=== PATIENT | female | born 1935 | race Caucasian/White ===

== ENCOUNTER 2016-06-08 21:44 | Emergency (ER) | payer MEDICARE, OTHER ==
[2016-06-08 22:09] LABS: ABSOLUTE EOSINOPHILS # (AUTO) 0.5 10^3/uL (0.0-0.6); ABSOLUTE MONOCYTES (AUTO) 0.5 10^3/uL (0.1-1.4); BASOPHILS % (AUTO) 0.6 % (0-2); EOSINOPHILS % (AUTO) 10.7 % (0-6); HEMATOCRIT 33.7 % (36.0-47.0); HGB HCT DIFFERENCE -0.7; LYMPHOCYTES % (AUTO) 19.4 % (13-45); MEAN CORPUSCULAR HEMOGLOBIN 26.3 pg (27.0-33.4); MEAN CORPUSCULAR HGB CONC 32.7 g/dL (32.0-36.0); MEAN CORPUSCULAR VOLUME 80 fl (80-97); RED BLOOD COUNT 4.19 10^6/uL (3.72-5.28); RED CELL DISTRIBUTION WIDTH 17.4 % (11.5-14.0); SEGMENTED NEUTROPHILS % (AUTO) 59.3 % (42-78); WHITE BLOOD COUNT 5.1 10^3/uL (4.0-10.5)
[2016-06-08 22:27] LABS: ALANINE AMINOTRANSFERASE 27 U/L (9-52); ALBUMIN 4.2 g/dL (3.5-5.0); ALKALINE PHOSPHATASE 63 U/L (38-126); ANION GAP 11 (5-19); ASPARTATE AMINO TRANSFERASE 33 U/L (14-36); BILIRUBIN,TOTAL 0.7 mg/dL (0.2-1.3); BLOOD UREA NITROGEN 17 mg/dL (7-20); CARBON DIOXIDE 31 mmol/L (22-30); CHLORIDE 102 mmol/L (98-107); CREATINE KINASE 39 U/L (30-135); CREATININE RESULT 0.62 mg/dL (0.52-1.25); GLUCOSE 139 mg/dL (75-110); POTASSIUM 3.2 mmol/L (3.6-5.0); TOTAL PROTEIN 6.6 g/dL (6.3-8.2)
[2016-06-08 22:39] LABS: CREATINE KINASE MB 0.77 ng/mL (<4.55)
[2016-06-08 22:43] LABS: TROPONIN I < 0.012 ng/mL
[2016-06-08] MEDS ORDERED: IPRATROPIUM/ALBUTEROL 0.5-2.5 MG/3 ML AMPUL NEB ONE (23:48)
--- NOTE | 2016-06-08 23:50 | ER Document Report ---
ED General - General Chief Complaint: Breathing Difficulty Stated Complaint: DIFFICULITY BREATHING Notes: Patient is an 81-year-old female past medical history of COPD without oxygen dependence who presents with 2 days of progressively worsening shortness of breath. States that this worsened by exertion and that that is typical for her at all times it is worse than normal in the last 2 days. Describes her symptoms as constant. Nothing improves her symptoms and she has been trying her albuterol inhalers at home. She has not been seeing a primary care physician regarding today's concerns. She denies any fever, nausea, vomiting, chest pain, or syncope. States she's had similar symptoms in the past prior COPD exacerbations all of this episode "doesn't feel as bad as last time I think I caught it early this time". TRAVEL OUTSIDE OF THE [place] IN LAST 30 DAYS: No - HPI Onset: Other - 2 days Onset/Duration: Gradual Quality of pain: No pain Severity: None Pain Level: Denies Associated symptoms: None Exacerbated by: Walking Relieved by: Denies Similar symptoms previously: Yes Recently seen / treated by doctor: No - Related Data Allergies/Adverse Reactions: No Known Allergies Allergy (Verified 04/05/16 03:32) Past Medical History - General Information source: Patient - Social History Smoking Status: Former Smoker Chew tobacco use (# tins/day): No Frequency of alcohol use: None Drug Abuse: None Lives with: Spouse/Significant other Family History: CAD Patient has suicidal ideation: No Patient has homicidal ideation: No - Past Medical History Cardiac Medical History: Reports: Hx Atrial Fibrillation, Hx Congestive Heart Failure, Hx DVT - history, Hx Heart Attack, Hx Hypercholesterolemia, Hx Hypertension Denies: Hx Pulmonary Embolism Pulmonary Medical History: Reports: Hx COPD Neurological Medical History: Denies: Hx Seizures Endocrine Medical History: Reports: Hx Hypothyroidism. Denies: Hx Diabetes Mellitus Type 1, Hx Diabetes Mellitus Type 2, Hx Hyperthyroidism Renal/ Medical History: Denies: Hx Peritoneal Dialysis GI Medical History: Reports: Hx Gastroesophageal Reflux Disease. Denies: Hx Cirrhosis, Hx Hepatitis Musculoskeltal Medical History: Reports Hx Arthritis Skin Medical History: Reports Hx Eczema - Questionable Psychiatric Medical History: Reports: Hx Depression Infectious Medical History: Denies: Hx Hepatitis Past Surgical History: Reports: Hx Cardiac Catheterization, Hx Cardiac Surgery - pacemaker placement, bypass, Hx Coronary Artery Bypass Graft, Hx Pacemaker, Other - Right lower lobectomy for lung cancer 2013. - Immunizations Hx Diphtheria, Pertussis, Tetanus Vaccination: Yes Hx Pneumococcal Vaccination: 04/20/14 Review of Systems - Review of Systems Notes: Constitutional: Negative for fever. HENT: Negative for sore throat. Eyes: Negative for visual changes. Cardiovascular: Negative for chest pain. Respiratory: Positive for shortness of breath. Gastrointestinal: Negative for abdominal pain, vomiting or diarrhea. Genitourinary: Negative for dysuria. Musculoskeletal: Negative for back pain. Skin: Negative for rash. Neurological: Negative for headaches, weakness or numbness. 10 point ROS negative except as marked above and in HPI. Physical Exam - Vital signs Vitals: Resp 16 06/08/16 21:45 Notes: PHYSICAL EXAMINATION: GENERAL: Elderly women, Well-appearing, well-nourished and in no acute distress. HEAD: Atraumatic, normocephalic. EYES: Pupils equal round and reactive to light, extraocular movements intact, sclera anicteric, conjunctiva are normal. ENT: nares patent, oropharynx clear without exudates. Moist mucous membranes. NECK: Normal range of motion, supple without lymphadenopathy LUNGS: Expiratory wheezing in all lung gay. Probably diminished air movement bilaterally. HEART: Regular rate and rhythm without murmurs ABDOMEN: Soft, nontender, normoactive bowel sounds. No guarding, no rebound. No masses appreciated. EXTREMITIES: Normal range of motion, no pitting or edema. No cyanosis. NEUROLOGICAL: No focal neurological deficits. Moves all extremities spontaneously and on command. PSYCH: Normal mood, normal affect. SKIN: Warm, Dry, normal turgor, no rashes or lesions noted. Course - Re-evaluation Re-evalutation: 06/08/16 23:50 Patient presents with a mild exacerbation of their baseline COPD. Mild wheezing at time of presentation but vitals do not show significant hypoxemia or tachypnea. No retractions. Patient did clinically improve after receiving nebulizers here in the emergency department. Chest x-ray without evidence of an acute pneumonia. Laboratories do not show acute kidney injury or significant leukocytosis. Patient able to ambulate without any respiratory distress. Based on patient's overall reassuring assessment, I believe they are stable for outpatient management with steroids and oral antibiotics. Patient has nebulizers at home. I do not suspect an acute alternative pathology at this time based on history and exam including acute pulmonary embolus, ACS, pneumothorax, or aortic dissection. At this time will discharge with return precautions and follow-up recommendations. Verbal discharge instructions given a the bedside and opportunity for questions given. Medication warnings reviewed. Patient is in agreement with this plan and has verbalized understanding of return precautions and the need for primary care follow-up in the next 24-72 hours. - Vital Signs Vital signs: Temp Pulse Resp BP Pulse Ox 18 173/85 H 93 06/09/16 02:01 06/09/16 02:01 06/09/16 01:31 - Laboratory Result Diagrams: 06/08/16 21:55 06/08/16 21:55 Laboratory results interpreted by me: 06/08/16 06/08/16 06/08/16 21:55 21:55 21:55 Hgb 11.0 L Hct 33.7 L MCH 26.3 L RDW 17.4 H Eosinophils % 10.7 H Potassium 3.2 L Carbon Dioxide 31 H Glucose 139 H NT-Pro-B Natriuret Pep 2470 H - Diagnostic Test Radiology reviewed: Image reviewed, Reports reviewed Radiology results interpreted by me: 06/09/16 02:30 Chest x-ray: Right pleural effusion - EKG Interpretation by Me Additional EKG results interpreted by me: 06/09/16 02:31 Afib, paced complexes rate 72. Discharge - Discharge Clinical Impression: COPD with exacerbation, Pleural effusion on right Condition: Fair Disposition: HOME, SELF-CARE Additional Instructions: You were seen for a COPD exacerbation. Your symptoms improved with treatment here in the emergency department. However, it is very important that you return to the emergency department immediately if you began to have worsening difficulty breathing that does not respond to your normal home nebulizers. You are also being sent home on a five-day course of steroids that you should start taking tomorrow. Please also take the antibiotics as prescribed. Please also follow closely with your primary care physician. You should eturn to emergency department if you develop fever greater than 101, persistent cough, persistent vomiting, pass out, or any other symptoms that are concerning to you. Prescriptions: Doxycycline Hyclate 100 mg PO BID #14 capsule Prednisone [Deltasone 20 mg Tablet] 3 tab PO DAILY 5 Days Referrals: ZARI MASON MD [Primary Care Provider] - Follow up tomorrow
[2016-06-09] MEDS: MAGNESIUM SULFATE/D5W 100 ML IV SCH ×2 (00:14→00:27)
[2016-06-09] MEDS ORDERED: DOXYCYCLINE HYCLATE 100 MG TABLET PO ONE (01:17)
[2016-06-09 02:30] VITALS: BP 173/85
--- NOTE | 2016-06-09 08:33 | EKG REPORT ---
SEVERITY:- ABNORMAL ECG - AFIB/FLUT AND V-PACED COMPLEXES NONSPECIFIC REPOL ABNORMALITY, DIFFUSE LEADS : Confirmed by: Ruben Dempsey 09-Jun-2016 08:31:51
== END 2016-06-09 02:55 | disposition home or self-care (01) ==
LOC: ER 21:44
DX: J44.1 Chronic obstructive pulmonary disease with (acute) exacerbation (principal); J90 Pleural effusion, not elsewhere classified; R06.02 Shortness of breath; Z87.891 Personal history of nicotine dependence
CPT/HCPCS: 93005; 96376; 94640; 99285; 96374; 36415; 82553; 82550; 85025; 80053; 84484; 83880; 71010; 93010; A9270 ×2; J3475; J7620

== ENCOUNTER 2016-07-24 14:59 | Inpatient (IN) | payer MEDICARE, OTHER ==
[2016-07-24] MEDS ORDERED: NORMAL SALINE 1000 ML 500 ML IV ONE (15:19)
--- NOTE | 2016-07-24 15:38 | ER Document Report ---
ED Respiratory Problem - General Mode of Arrival: Medic Information source: Patient TRAVEL OUTSIDE OF THE [place] IN LAST 30 DAYS: No - HPI Patient complains to provider of: Cough, Short of breath Context: Hx COPD Associated symptoms: Other - see notes above <EFRA SCHMID - Last Filed: 07/24/16 17:39> <HARRIET CUEVAS - Last Filed: 07/24/16 20:07> - General Chief Complaint: Breathing Difficulty Stated Complaint: GENERAL WEAKNESS Notes: 81 year old female with history of COPD, CHF, MD, atrial fibrillation, and hypertension presents to the ED complaining of difficulty breathing and cough that started earlier this afternoon. Patient reports that her called a nurse to the house when he became concerned and reports that the nurse said she was febrile. (EFRA SCHMID) - Related Data Allergies/Adverse Reactions: No Known Allergies Allergy (Verified 04/05/16 03:32) Home Medications: Current Home Medications Acetaminophen [Tylenol 325 mg Tablet] 325 mg PO Q6HP PRN 07/24/16 [History] Albuterol Sulfate [Albuterol Sulfate 2.5mg/3 mL] 1 vial IH Q6 07/24/16 [History] Albuterol Sulfate [Ventolin Hfa] 2 puff IH Q4 PRN 07/24/16 [History] Calcium Carbonate/Vitamin D3 [Calcium 500 + Vit D 200 Caplet] 1 tab-cap PO DAILY 07/24/16 [History] Carvedilol [Coreg 25 mg Tablet] 25 mg PO Q12 07/24/16 [History] Cyclosporine 0.05% Oph Emulsio [Restasis 0.05% Opthalmic Droperette] 1 drop OU Q12 07/24/16 [History] Esomeprazole Magnesium [Nexium] 20 mg PO DAILY 07/24/16 [History] Furosemide [Lasix] 20 mg PO QAM 07/24/16 [History] Levothyroxine Sodium [Synthroid 50 Mcg Tablet] 50 mcg PO DAILY 07/24/16 [History ] Lisinopril [Prinivil] 20 mg PO Q12 07/24/16 [History] Multivitamin [Tab-A-Ag] 1 tab PO DAILY 07/24/16 [History] Nitroglycerin [Nitrostat 0.4 mg (1/150 Gr) Tabs 25/Bottle] 0.4 mg PO Q5MP PRN [History] Pravastatin Sodium [Pravachol] 40 mg PO DAILY 07/24/16 [History] Rivaroxaban [Xarelto] 20 mg PO DAILY 07/24/16 [History] Tiotropium [place] [Spiriva Handihaler 5 Cap/Kit (18 Mcg/Cap)] 1 cap IH DAILY [History] Past Medical History - General Information source: Patient - Social History Smoking Status: Unknown if Ever Smoked Family History: CAD - Past Medical History Cardiac Medical History: Reports: Hx Atrial Fibrillation, Hx Congestive Heart Failure, Hx DVT - history, Hx Heart Attack, Hx Hypercholesterolemia, Hx Hypertension Pulmonary Medical History: Reports: Hx COPD Endocrine Medical History: Reports: Hx Hypothyroidism GI Medical History: Reports: Hx Gastroesophageal Reflux Disease Musculoskeltal Medical History: Reports Hx Arthritis Skin Medical History: Reports Hx Eczema - Questionable Psychiatric Medical History: Reports: Hx Depression Past Surgical History: Reports: Hx Cardiac Catheterization, Hx Cardiac Surgery - pacemaker placement, bypass, Hx Coronary Artery Bypass Graft, Hx Pacemaker, Other - Right lower lobectomy for lung cancer 2013. - Immunizations Hx Diphtheria, Pertussis, Tetanus Vaccination: Yes Hx Pneumococcal Vaccination: 04/20/14 <EFRA SCHMID - Last Filed: 07/24/16 17:39> Review of Systems - Review of Systems Constitutional: See HPI, Fever EENT: No symptoms reported Cardiovascular: No symptoms reported Respiratory: See HPI, Cough, Short of breath Gastrointestinal: No symptoms reported Genitourinary: No symptoms reported Female Genitourinary: No symptoms reported Musculoskeletal: No symptoms reported Skin: No symptoms reported Hematologic/Lymphatic: No symptoms reported Neurological/Psychological: No symptoms reported -: Yes All other systems reviewed and negative <EFRA SCHMID - Last Filed: 07/24/16 17:39> Physical Exam - Vital signs Interpretation: Febrile - General General appearance: Alert In distress: None - HEENT Head: Normocephalic, Atraumatic Eyes: Normal Extraocular movements intact: Yes Pupils: PERRL - Respiratory Respiratory status: No respiratory distress Breath sounds: Normal - Cardiovascular Rhythm: Regular Heart sounds: Normal auscultation - Abdominal Inspection: Normal Distension: No distension Tenderness: Nontender - Back Back: Normal - Extremities General upper extremity: Normal inspection, Normal ROM General lower extremity: Normal inspection, Normal ROM - Neurological Neuro grossly intact: Yes Cognition: Normal Orientation: AAOx4 Jackson Coma Scale Eye Opening: Spontaneous Jackson Coma Scale Verbal: Oriented Jackson Coma Scale Motor: Obeys Commands Jackson Coma Scale Total: 15 Speech: Normal - Psychological Associated symptoms: Normal affect, Normal mood - Skin Skin Temperature: Warm Skin Moisture: Dry Skin Color: Normal <EFRA SCHMID - Last Filed: 07/24/16 17:39> Course - Laboratory Result Diagrams: 07/24/16 15:50 07/24/16 15:50 - Consults Dr. Sandoval Time consulted: 17:33 <EFRA SCHMID - Last Filed: 07/24/16 17:39> - Laboratory Result Diagrams: 07/24/16 15:50 07/24/16 15:50 <HARRIET CUEVAS - Last Filed: 07/24/16 20:07> - Re-evaluation Re-evalutation: 07/24/16 Patient is a 1 years old and presents with altered mental status, fever, and generalized weakness. Patient has had a cough recently apparently. Patient also had foul-smelling urine but no evidence for UTI today. Patient sees Dr. Foster as her primary care doctor. Patient lives with her elderly . Patient's was febrile upon presentation. She had been given Tylenol by EMS. Mental status is improved but the patient does become hypoxemic with movement. Discussed with Dr. Sandoval. Antibiotics initiated. Patient will be admitted for fever, altered mental status which is now resolved, and probable pneumonia. Cultures have been sent. (HARRIET CUEVAS) - Vital Signs Vital signs: Temp Pulse Resp BP Pulse Ox 97.7 F 82 15 109/81 96 07/24/16 18:03 07/24/16 15:19 07/24/16 18:03 07/24/16 19:01 07/24/16 19:01 - Laboratory Laboratory results interpreted by ms: 07/24/16 07/24/16 07/24/16 15:50 15:50 15:50 Hgb 11.2 L Hct 34.6 L MCV 77 L MCH 24.8 L RDW 17.7 H Lymphocytes % 8.8 L PT 19.1 H Glucose 154 H Urine Protein Urine Ketones Urine Blood Urine Urobilinogen 07/24/16 16:44 Hgb Hct MCV MCH RDW Lymphocytes % PT Glucose Urine Protein 100 H Urine Ketones 20 H Urine Blood SMALL H Urine Urobilinogen 4.0 H - Consults Dr. Sandoval Reason for consultation: 07/24/16 17:33 Patient was discussed with Dr. Sandoval and agrees to admit the patient. (EFRA SCHMID) Discharge <EFRA SCHMID - Last Filed: 07/24/16 17:39> - Discharge Admitting Provider: [facility] Unit Admitted: Telemetry <HARRIET CUEVAS - Last Filed: 07/24/16 20:07> - Discharge Clinical Impression: Pneumonia Qualifiers: Pneumonia type: due to unspecified organism Laterality: right Lung location: lower lobe of lung Qualified Code(s): J18.1 - Lobar pneumonia, unspecified organism Fever Qualifiers: Fever type: unspecified Qualified Code(s): R50.9 - Fever, unspecified Altered mental status Qualifiers: Altered mental status type: unspecified Qualified Code(s): R41.82 - Altered mental status, unspecified Condition: Stable Disposition: ADMITTED INPATIENT Scribe Attestation: 07/24/16 20:07 I personally performed the services described in the documentation, reviewed and edited the documentation which was dictated to the scribe in my presence, and it accurately records my words and actions. (HARRIET CUEVAS) Scribe Documentation - Scribe Written by Scribe:: Candida Florian, 07/24/2016 1601 acting as scribe for :: Naty <EFRA SCHMID - Last Filed: 07/24/16 17:39>
[2016-07-24 16:14] LABS: ABSOLUTE EOSINOPHILS # (AUTO) 0.1 10^3/uL (0.0-0.6); ABSOLUTE LYMPHOCYTES (AUTO) 0.5 10^3/uL (0.5-4.7); ABSOLUTE MONOCYTES (AUTO) 0.7 10^3/uL (0.1-1.4); ABSOLUTE NEUT (AUTO) 4.5 10^3/uL (1.7-8.2); BASOPHILS % (AUTO) 0.3 % (0-2); EOSINOPHILS % (AUTO) 1.2 % (0-6); HEMATOCRIT 34.6 % (36.0-47.0); HEMOGLOBIN 11.2 g/dL (12.0-15.5); LYMPHOCYTES % (AUTO) 8.8 % (13-45); MEAN CORPUSCULAR HEMOGLOBIN 24.8 pg (27.0-33.4); MEAN CORPUSCULAR HGB CONC 32.3 g/dL (32.0-36.0); MEAN CORPUSCULAR VOLUME 77 fl (80-97); MONOCYTES % (AUTO) 12.5 % (3-13); RED BLOOD COUNT 4.51 10^6/uL (3.72-5.28); RED CELL DISTRIBUTION WIDTH 17.7 % (11.5-14.0); SEGMENTED NEUTROPHILS % (AUTO) 77.2 % (42-78); VENOUS BLOOD BASE EXCESS 2.8 mmol/L; VENOUS BLOOD HCO3 28.4 mmol/L (20-32); VENOUS BLOOD PCO2 48.5 mmHg (35-63); VENOUS BLOOD PH 7.39 (7.30-7.42); WHITE BLOOD COUNT 5.8 10^3/uL (4.0-10.5)
[2016-07-24 16:23] LABS: PROTHROMBIN TIME 19.1 SEC (11.4-15.4)
[2016-07-24 16:33] LABS: ALANINE AMINOTRANSFERASE 23 U/L (9-52); ALBUMIN 3.8 g/dL (3.5-5.0); ALKALINE PHOSPHATASE 60 U/L (38-126); ANION GAP 15 (5-19); ASPARTATE AMINO TRANSFERASE 19 U/L (14-36); BILIRUBIN,DIRECT 0.3 mg/dL (0.0-0.4); BILIRUBIN,TOTAL 0.7 mg/dL (0.2-1.3); BLOOD UREA NITROGEN 18 mg/dL (7-20); CALCIUM 8.9 mg/dL (8.4-10.2); CARBON DIOXIDE 27 mmol/L (22-30); CHLORIDE 102 mmol/L (98-107); CREATININE RESULT 0.57 mg/dL (0.52-1.25); GLUCOSE 154 mg/dL (75-110); POTASSIUM 3.7 mmol/L (3.6-5.0); SODIUM 143.5 mmol/L (137-145); TOTAL PROTEIN 6.7 g/dL (6.3-8.2)
[2016-07-24 17:06] LABS: APPEARANCE,URINE SLIGHTLY-CLOUDY; BILIRUBIN,URINE NEGATIVE (NEGATIVE); GLUCOSE, URINE NEGATIVE (NEGATIVE); KETONES,URINE 20 mg/dL (NEGATIVE); LEUKOCYTE ESTERASE,URINE NEGATIVE (NEGATIVE); NITRITE,URINE NEGATIVE (NEGATIVE); PROTEIN,URINE 100 mg/dL (NEGATIVE); URINE SPECIFIC GRAVITY 1.017
[2016-07-24] MEDS ORDERED: AZITHROMYCIN INJ 500 MG VIAL IV ONE (17:12)
[2016-07-24] MEDS ORDERED: CEFTRIAXONE 1 GM/D5W RTU 50 ML IV ONE (17:12)
[2016-07-24] MEDS ORDERED: NORMAL SALINE 1000 ML 1,000 ML IV PRN (17:50)
[2016-07-24] MEDS ORDERED: ACETAMINOPHEN 325 MG TABLET PO PRN (17:50)
[2016-07-24] MEDS ORDERED: ALBUTEROL SULFATE 0.083% NEB 2.5 MG/3 ML AMPUL NEB PRN (17:50)
--- NOTE | 2016-07-24 18:13 | PDOC H&P ---
History of Present Illness Admission Date/PCP: CONCEPCION SCHMID MD Patient complains of: fever and neck pain; sent in from home after HH nurse found fever and AMS History of Present Illness: ROSELIA MICHELE is a 81 year old female preesnt from home after episode of confusion prompting her [place] home health nurse to the home; upon her arrival she reportedly found her altered with "high fever" but no documentation of same. EMS called and on arrival in ED so far the only finding is positional desat when sitting upright, cough with phlegm, no fever or leukocytosis but concern for pneumonia and we were asked to admit for further evaluation. she describes "neck pain" but cannot characterize it better, worse with any movement, better with rest and no asct'd symptoms of [place], dizziness, vision changes, tinnitus, N/T, sore throat, difficulty swallowing, swollen glands. she also reports increasing cough with increasing white, frothy phlegm, increase SOA, fatigue, myalgias and arthralgias. she has no recollection of this morning's events. no family accompanied her to the hospital. Past Medical History Cardiac Medical History: Reports: Atrial Fibrillation, Congestive Heart Failure , DVT - history, Myocardial Infarction, Hyperlipidema, Hypertension Denies: Pulmonary Embolism Pulmonary Medical History: Reports: Chronic Obstructive Pulmonary Disease (COPD) Neurological Medical History: Denies: Seizures Endocrine Medical History: Reports: Hypothyroidism Denies: Diabetes Mellitus Type 1, Diabetes Mellitus Type 2, Hyperthyroidism Malignancy Medical History: Reports: Lung Cancer GI Medical History: Reports: Gastroesophageal Reflux Disease Denies: Cirrhosis, Hepatitis Musculoskeltal Medical History: Reports: Arthritis Skin Medical History: Reports: Eczema - Questionable Psychiatric Medical History: Reports: Depression Past Surgical History Past Surgical History: Reports: Cardiac Catheterization, Coronary Artery Bypass Graft, Pacemaker, Other - Right lower lobectomy for lung cancer 2013. Social History Smoking Status: Former Smoker - quit 6 yrs ago Frequency of Alcohol Use: Rare Hx Recreational Drug Use: No Hx Prescription Drug Abuse: No - Advance Directive Resuscitation Status: Full Code Family History Family History: CAD Parental Family History Reviewed: Yes Children Family History Reviewed: Yes Sibling(s) Family History Reviewed.: Yes Medication/Allergy Home Medications: Acetaminophen [Tylenol 325 mg Tablet] 325 mg PO Q6HP PRN 07/24/16 Albuterol Sulfate [Albuterol Sulfate 2.5mg/3 mL] 1 vial IH Q6 07/24/16 Albuterol Sulfate [Ventolin Hfa] 2 puff IH Q4 PRN 07/24/16 Calcium Carbonate/Vitamin D3 [Calcium 500 + Vit D 200 Caplet] 1 tab-cap PO DAILY 07/24/16 Carvedilol [Coreg 25 mg Tablet] 25 mg PO Q12 07/24/16 Cyclosporine 0.05% Oph Emulsio [Restasis 0.05% Opthalmic [place]] 1 drop OU Q12 07/24/16 Esomeprazole Magnesium [Nexium] 20 mg PO DAILY 07/24/16 Furosemide [Lasix] 20 mg PO QAM 07/24/16 Levothyroxine Sodium [Synthroid 50 Mcg Tablet] 50 mcg PO DAILY 07/24/16 Lisinopril [Prinivil] 20 mg PO Q12 07/24/16 Multivitamin [Tab-A-Ag] 1 tab PO DAILY 07/24/16 Nitroglycerin [Nitrostat 0.4 mg (1/150 Gr) Tabs 25/Bottle] 0.4 mg PO Q5MP PRN Pravastatin Sodium [Pravachol] 40 mg PO DAILY 07/24/16 Rivaroxaban [Xarelto] 20 mg PO DAILY 07/24/16 Tiotropium [place] [Spiriva Handihaler 5 Cap/Kit (18 Mcg/Cap)] 1 cap IH DAILY Allergies/Adverse Reactions: No Known Allergies Allergy (Verified 04/05/16 03:32) Review of Systems Constitutional: PRESENT: fever(s), weakness. ABSENT: chills, headache(s), weight gain, weight loss Eyes: ABSENT: visual disturbances Ears: ABSENT: hearing changes Cardiovascular: PRESENT: dyspnea on exertion. ABSENT: chest pain, edema, orthropnea, palpitations Respiratory: PRESENT: cough, sputum. ABSENT: hemoptysis Gastrointestinal: ABSENT: abdominal pain, constipation, diarrhea, hematemesis, hematochezia, nausea, vomiting Genitourinary: ABSENT: dysuria, hematuria Musculoskeletal: ABSENT: joint swelling Integumentary: ABSENT: rash, wounds Neurological: ABSENT: abnormal gait, abnormal speech, confusion, dizziness, focal weakness, syncope Psychiatric: ABSENT: anxiety, depression Endocrine: ABSENT: cold intolerance, heat intolerance, polydipsia, polyuria Hematologic/Lymphatic: ABSENT: easy bleeding, easy bruising Physical Exam Vital Signs: Temp Pulse Resp BP Pulse Ox 98.8 F 82 20 143/56 H 94 07/24/16 15:19 07/24/16 15:19 07/24/16 16:00 07/24/16 15:19 07/24/16 16:00 PHYSICAL EXAM GENERAL: NAD; well developed, well nourished; no obese; alert and oriented to person, place, time HEENT: normocephalic, atraumatic; EOMI, PERRLA, no conjunctival injection, no scleral icterus; oral mucosa moist, neck supple but trapezius muscles tender to palpation, no LAD, limited ROM due to discomfort; crepitus noted in spine on flexion/extension and rotation RESPIRATORY: no accessory muscle use, no increased WOB, diminished air entry Rt base; no wheezes, rales, rhonchi; bibasilar inspiratory crackles CARDIO: marked JV pulsations in Rt; afib on monitor with occasional paced beats ; soft systolic murmur; no tachycardia VASCULAR: no carotid bruit; no abdominal bruit; no pallor; 2+ radial, DP pulse ; normal capillary refill; bilat varicosities GI: soft; nondistended; normal bowel sounds; no rebound, rigidity, guarding; nontender NEURO: normal patella reflexes; normal sensation; normal motor function; no dysarthria; no nystagmus; tongue protrudes midline; MSK: 5/5 strength; normal ROM hips; no tenderness EXTREMITIES: no calf tender; no palpable cords in calf; no clubbing, cyanosis , pedal edema PSYCH: normal affect, normal mood SKIN: warm; moist; no petechiae; no telengectasias; no jaundice; no rash Results Laboratory Results: 07/24/16 15:50 07/24/16 15:50 07/24/16 07/24/16 07/24/16 15:50 15:50 15:50 WBC 5.8 RBC 4.51 Hgb 11.2 L Hct 34.6 L MCV 77 L MCH 24.8 L MCHC 32.3 RDW 17.7 H Plt Count 166 Seg Neutrophils % 77.2 Lymphocytes % 8.8 L Monocytes % 12.5 Eosinophils % 1.2 Basophils % 0.3 Absolute Neutrophils 4.5 Absolute Lymphocytes 0.5 Absolute Monocytes 0.7 Absolute Eosinophils 0.1 Absolute Basophils 0.0 VBG pH VBG pCO2 VBG HCO3 VBG Base Excess Sodium 143.5 Potassium 3.7 Chloride 102 Carbon Dioxide 27 Anion Gap 15 BUN 18 Creatinine 0.57 Est GFR ( Amer) > 60 Est GFR (Non-Af Amer) > 60 Glucose 154 H Lactic Acid 1.4 Calcium 8.9 Total Bilirubin 0.7 AST 19 ALT 23 Alkaline Phosphatase 60 Total Protein 6.7 Albumin 3.8 Urine Color Urine Appearance Urine pH Ur Specific [place] Urine Protein Urine Glucose (UA) Urine Ketones Urine Blood Urine Nitrite Ur Leukocyte Esterase Urine WBC (Auto) Urine RBC (Auto) 07/24/16 07/24/16 15:50 16:44 WBC RBC Hgb Hct MCV MCH MCHC RDW Plt Count Seg Neutrophils % Lymphocytes % Monocytes % Eosinophils % Basophils % Absolute Neutrophils Absolute Lymphocytes Absolute Monocytes Absolute Eosinophils Absolute Basophils VBG pH 7.39 VBG pCO2 48.5 VBG HCO3 28.4 VBG Base Excess 2.8 Sodium Potassium Chloride Carbon Dioxide Anion Gap BUN Creatinine Est GFR ( Amer) Est GFR (Non-Af Amer) Glucose Lactic Acid Calcium Total Bilirubin AST ALT Alkaline Phosphatase Total Protein Albumin Urine Color YELLOW Urine Appearance SLIGHTLY-CLOUDY Urine pH 6.0 Ur Specific [place] 1.017 Urine Protein 100 H Urine Glucose (UA) NEGATIVE Urine Ketones 20 H Urine Blood SMALL H Urine Nitrite NEGATIVE Ur Leukocyte Esterase NEGATIVE Urine WBC (Auto) 6 Urine RBC (Auto) 4 Impressions: Chest X-Ray 07/24/16 00:00 IMPRESSION: Interval improvement in pleural and parenchymal changes in the right lower hemithorax. The current changes may be chronic in nature. Other findings as noted above Status: Image reviewed by me - unclear Assessment & Plan - Diagnosis (1) Pneumonia Qualifiers: Pneumonia type: due to unspecified organism Laterality: right Lung location: lower lobe of lung Qualified Code(s): J18.1 - Lobar pneumonia, unspecified organism Is this a current diagnosis for this admission?: YesPlan: Admitted to monitored bed for continuing antibiotics with Rocephin and Zithromax , review of the patient's EKG shows a normal corrected QT interval. Provide supplemental O2, continue spirometer, scheduled nebulizers for the first 24 hours and as needed. Anatomic changes from prior surgery Mc chest x-ray difficult to interpret, therefore will get CT of the chest without IV contrast looking for pneumonia or other parenchymal airspace disease. Chronic scrotal use makes embolism less likely therefore no clear indication for IV contrast at this time. Follow-up Blood and sputum cultures (2) COPD (chronic obstructive pulmonary disease) Qualifiers: COPD type: emphysema Emphysema type: unspecified Qualified Code( s): J43.9 - Emphysema, unspecified Is this a current diagnosis for this admission?: YesPlan: Without evidence for acute exacerbation. Follow-up CT as ordered above. Otherwise treat as above. Patient does not wear home O2 or have a home nebulizer. (3) Anticoagulated Is this a current diagnosis for this admission?: YesPlan: Continue Xarelto. (4) CAD (coronary artery disease) Qualifiers: Coronary Disease-Associated Artery/Lesion type: [place] artery [place] vs. transplanted heart: [place] heart Associated angina: without angina Qualified Code(s): I25.10 - Atherosclerotic heart disease of [place] coronary artery without angina pectoris Is this a current diagnosis for this admission?: YesPlan: No active chest pain. EKG is paced and shows no ischemic changes. First cardiac enzyme is negative for acute ischemia. (5) Status post lobectomy of lung Is this a current diagnosis for this admission?: YesPlan: Stable. See above note. - Time Time Spent: 50 to 70 Minutes Medications reviewed and adjusted accordingly: Yes Anticipated discharge: Home with Homehealth Within: within 72 hours - Inpatient Certification Medical Necessity: Significant Comorbidiites Make Outpatient Treatment Too Risky , Need For IV Fluids, Need for IV Antibiotics, Risk of Complication if Not Cared For in Hospital
[2016-07-24] MEDS: IPRATROPIUM/ALBUTEROL 0.5-2.5 MG/3 ML AMPUL NEB SCH (20:29)
[2016-07-24] MEDS ORDERED: (PENDING PHARMACY ID) (Lisinopril [Prinivil] 20 MG) PO SCH (22:00)
[2016-07-24] MEDS: CARVEDILOL 12.5 MG TABLET PO SCH (22:14)
[2016-07-24] MEDS: ATORVASTATIN CALCIUM 10 MG TABLET PO SCH (22:14)
[2016-07-24] MEDS: LISINOPRIL 10 MG TABLET PO SCH (22:14)
[2016-07-24] MEDS: CYCLOSPORINE 0.05% OPH EMULSIO 0.4 ML DROPERETTE OU SCH (22:53)
[2016-07-25] MEDS: LANSOPRAZOLE 15 MG TAB.RAP.DR PO SCH (05:59)
[2016-07-25 07:21] LABS: ABSOLUTE EOSINOPHILS # (AUTO) 0.3 10^3/uL (0.0-0.6); ABSOLUTE LYMPHOCYTES (AUTO) 0.6 10^3/uL (0.5-4.7); ABSOLUTE MONOCYTES (AUTO) 0.5 10^3/uL (0.1-1.4); ABSOLUTE NEUT (AUTO) 2.3 10^3/uL (1.7-8.2); BASOPHILS % (AUTO) 0.6 % (0-2); EOSINOPHILS % (AUTO) 7.4 % (0-6); HEMATOCRIT 29.7 % (36.0-47.0); HEMOGLOBIN 9.8 g/dL (12.0-15.5); HGB HCT DIFFERENCE -0.3; LYMPHOCYTES % (AUTO) 17.2 % (13-45); MEAN CORPUSCULAR HGB CONC 33.1 g/dL (32.0-36.0); MEAN CORPUSCULAR VOLUME 75 fl (80-97); RED BLOOD COUNT 3.93 10^6/uL (3.72-5.28); RED CELL DISTRIBUTION WIDTH 17.2 % (11.5-14.0); SEGMENTED NEUTROPHILS % (AUTO) 61.8 % (42-78); WHITE BLOOD COUNT 3.7 10^3/uL (4.0-10.5)
[2016-07-25 07:33] LABS: ALANINE AMINOTRANSFERASE 27 U/L (9-52); ALBUMIN 3.3 g/dL (3.5-5.0); ALKALINE PHOSPHATASE 56 U/L (38-126); ANION GAP 10 (5-19); ASPARTATE AMINO TRANSFERASE 19 U/L (14-36); BILIRUBIN,DIRECT 0.2 mg/dL (0.0-0.4); BILIRUBIN,TOTAL 0.6 mg/dL (0.2-1.3); BLOOD UREA NITROGEN 13 mg/dL (7-20); CALCIUM 8.3 mg/dL (8.4-10.2); CARBON DIOXIDE 26 mmol/L (22-30); CHLORIDE 105 mmol/L (98-107); CREATININE RESULT 0.47 mg/dL (0.52-1.25); GLUCOSE 78 mg/dL (75-110); POTASSIUM 3.3 mmol/L (3.6-5.0); SODIUM 140.8 mmol/L (137-145); TOTAL PROTEIN 5.7 g/dL (6.3-8.2)
[2016-07-25] MEDS: IPRATROPIUM/ALBUTEROL 0.5-2.5 MG/3 ML AMPUL NEB SCH ×3 (08:23→20:48)
[2016-07-25] MEDS ORDERED: (PENDING PHARMACY ID) (Pravastatin Sodium [Pravachol] 40 MG) PO SCH (10:00)
[2016-07-25] MEDS: CEFTRIAXONE 1 GM/D5W RTU 50 ML IV SCH (10:20)
[2016-07-25] MEDS: CARVEDILOL 12.5 MG TABLET PO SCH ×2 (10:20→17:27)
[2016-07-25] MEDS: RIVAROXABAN 10 MG TABLET PO SCH (10:21)
[2016-07-25] MEDS: AZITHROMYCIN 500 MG in DEXTROSE 5%-WATER 250 ML IV SCH (10:21)
[2016-07-25] MEDS: LISINOPRIL 10 MG TABLET PO SCH ×2 (10:21→17:28)
[2016-07-25] MEDS: LEVOTHYROXINE SODIUM 0.05 MG TABLET PO SCH (10:21)
[2016-07-25] MEDS: CYCLOSPORINE 0.05% OPH EMULSIO 0.4 ML DROPERETTE OU SCH ×2 (10:26→22:35)
--- NOTE | 2016-07-25 15:53 | PDOC PROGRESS REPORT ---
Subjective Progress Note for:: 07/25/16 Subjective:: Reason for follow-up visit: Fever, neck pain, altered mental status Hospital course:ROSELIA MICHELE is a 81 year old female preesnt from home after episode of confusion prompting her to [place] then referred home health nurse to the home; upon her arrival she reportedly found her altered with "high fever" but no documentation of same. EMS called and on arrival in ED so far the only finding is positional desat when sitting upright, cough with phlegm, no fever or leukocytosis but concern for pneumonia and we were asked to admit for further evaluation. she describes "neck pain" but cannot characterize it better, worse with any movement, better with rest and no asct'd symptoms of [place], dizziness, vision changes, tinnitus, N/T, sore throat, difficulty swallowing, swollen glands. she also reports increasing cough with increasing white, frothy phlegm, increase SOA, fatigue, myalgias and arthralgias. she has no recollection of this morning's events. no family accompanied her to the hospital. CT scan of the chest does not confirm a pneumonia as suspected on admission however she continues to complain of cough with productive phlegm suggestive of at least a bacterial bronchitis. She's had no further episodes of confusion. She's had no further fevers. Her neck discomfort is positional and improved. ROS: She denies chest pain, palpitations, nausea, vomiting, diarrhea. Remaining ROS as above plus a total of 10 systems reviewed, pertinent positives and negatives noted above, remaining systems negative. Physical Exam Vital Signs: Temp Pulse Resp BP Pulse Ox 98.1 F 82 18 161/69 H 94 07/25/16 11:08 07/25/16 14:14 07/25/16 14:14 07/25/16 11:08 07/25/16 14:14 Intake & Output 07/24/16 07/25/16 07/26/16 06:59 06:59 06:59 Intake Total 553 200 Output Total 200 Balance 553 0 Weight 60.5 kg PHYSICAL EXAM GENERAL: NAD; well developed, well nourished; no obese; alert and oriented to person, place, time HEENT: normocephalic, atraumatic; no conjunctival injection, no scleral icterus ; oral mucosa moist, neck supple but trapezius muscles remain tender to palpation, no LAD, limited ROM due to discomfort; crepitus again noted in spine on flexion/extension and rotation RESPIRATORY: no accessory muscle use, no increased WOB, diminished air entry Rt base; no wheezes, rales, rhonchi; bibasilar inspiratory crackles persist CARDIO: marked JV pulsations in Rt; irr irr; soft systolic murmur; no tachycardia VASCULAR: no carotid bruit; no abdominal bruit; no pallor; 2+ radial, DP pulse ; normal capillary refill; bilat varicosities GI: soft; nondistended; normal bowel sounds; no rebound, rigidity, guarding; nontender NEURO: normal patella reflexes; normal sensation; normal motor function; no dysarthria; tongue protrudes midline; MSK: 5/5 strength; normal ROM hips; no tenderness EXTREMITIES: no calf tender; no palpable cords in calf; no clubbing, cyanosis , pedal edema PSYCH: normal affect, normal mood SKIN: warm; moist; no petechiae; no telengectasias; no jaundice; no rash Results Laboratory Results: 07/25/16 06:06 07/25/16 06:06 07/25/16 07/25/16 06:06 06:06 WBC 3.7 L RBC 3.93 Hgb 9.8 L Hct 29.7 L MCV 75 L MCH 25.0 L MCHC 33.1 RDW 17.2 H Plt Count 145 L Seg Neutrophils % 61.8 Lymphocytes % 17.2 Monocytes % 13.0 Eosinophils % 7.4 H Basophils % 0.6 Absolute Neutrophils 2.3 Absolute Lymphocytes 0.6 Absolute Monocytes 0.5 Absolute Eosinophils 0.3 Absolute Basophils 0.0 Sodium 140.8 Potassium 3.3 L Chloride 105 Carbon Dioxide 26 Anion Gap 10 BUN 13 Creatinine 0.47 L Est GFR ( Amer) > 60 Est GFR (Non-Af Amer) > 60 Glucose 78 Calcium 8.3 L Total Bilirubin 0.6 AST 19 ALT 27 Alkaline Phosphatase 56 Total Protein 5.7 L Albumin 3.3 L 07/25/16 06:06 NT-Pro-B Natriuret Pep 2130 H Impressions: Chest CT 07/24/16 00:00 IMPRESSION: No acute findings. Assessment & Plan - Diagnosis (1) Acute bacterial bronchitis Is this a current diagnosis for this admission?: YesPlan: Mild improved. Continue antibiotics, supplemental O2, nebulizers. (2) COPD (chronic obstructive pulmonary disease) Qualifiers: COPD type: emphysema Emphysema type: unspecified Qualified Code( s): J43.9 - Emphysema, unspecified Is this a current diagnosis for this admission?: Yes (3) Anticoagulated Is this a current diagnosis for this admission?: Yes (4) CAD (coronary artery disease) Qualifiers: Coronary Disease-Associated Artery/Lesion type: [place] artery [place] vs. transplanted heart: [place] heart Associated angina: without angina Qualified Code(s): I25.10 - Atherosclerotic heart disease of [place] coronary artery without angina pectoris Is this a current diagnosis for this admission?: Yes (5) Status post lobectomy of lung Is this a current diagnosis for this admission?: Yes (6) Pancytopenia Is this a current diagnosis for this admission?: YesPlan: Worse. Most likely related to the underlying infectious process. Repeat CBC in the morning and continue treatment of underlying infection. (7) Pneumonia Qualifiers: Pneumonia type: due to unspecified organism Laterality: right Lung location: lower lobe of lung Qualified Code(s): J18.1 - Lobar pneumonia, unspecified organism Is this a current diagnosis for this admission?: YesPlan: Ruled out by CT scan. - Time Time Spent with patient: 25-34 minutes Medications reviewed and adjusted accordingly: Yes Anticipated discharge: Home Within: within 24 hours
[2016-07-25] MEDS: ATORVASTATIN CALCIUM 10 MG TABLET PO SCH (17:28)
[2016-07-26] MEDS: LANSOPRAZOLE 15 MG TAB.RAP.DR PO SCH (05:55)
[2016-07-26 06:12] LABS: ABSOLUTE EOSINOPHILS # (AUTO) 0.4 10^3/uL (0.0-0.6); ABSOLUTE LYMPHOCYTES (AUTO) 0.6 10^3/uL (0.5-4.7); ABSOLUTE MONOCYTES (AUTO) 0.6 10^3/uL (0.1-1.4); ABSOLUTE NEUT (AUTO) 3.1 10^3/uL (1.7-8.2); BASOPHILS % (AUTO) 0.6 % (0-2); EOSINOPHILS % (AUTO) 8.4 % (0-6); HEMATOCRIT 32.4 % (36.0-47.0); HEMOGLOBIN 10.5 g/dL (12.0-15.5); HGB HCT DIFFERENCE -0.9; LYMPHOCYTES % (AUTO) 12.9 % (13-45); MEAN CORPUSCULAR HEMOGLOBIN 24.6 pg (27.0-33.4); MEAN CORPUSCULAR HGB CONC 32.5 g/dL (32.0-36.0); MEAN CORPUSCULAR VOLUME 76 fl (80-97); MONOCYTES % (AUTO) 11.9 % (3-13); RED BLOOD COUNT 4.28 10^6/uL (3.72-5.28); SEGMENTED NEUTROPHILS % (AUTO) 66.2 % (42-78); WHITE BLOOD COUNT 4.6 10^3/uL (4.0-10.5)
--- NOTE | 2016-07-26 06:18 | EKG REPORT ---
SEVERITY:- ABNORMAL ECG - A FIB WITH DEMAND VENTRICULAR-PACED COMPLEXES NONSPECIFIC REPOL ABNORMALITY, DIFFUSE LEADS : Confirmed by: Ruben Dempsey 26-Jul-2016 06:18:21
[2016-07-26 06:31] LABS: ANION GAP 14 (5-19); BLOOD UREA NITROGEN 10 mg/dL (7-20); CALCIUM 8.9 mg/dL (8.4-10.2); CARBON DIOXIDE 25 mmol/L (22-30); CHLORIDE 104 mmol/L (98-107); CREATININE RESULT 0.52 mg/dL (0.52-1.25); GLUCOSE 101 mg/dL (75-110); POTASSIUM 3.2 mmol/L (3.6-5.0); SODIUM 143.4 mmol/L (137-145)
[2016-07-26] MEDS: IPRATROPIUM/ALBUTEROL 0.5-2.5 MG/3 ML AMPUL NEB SCH ×2 (08:55→14:32)
[2016-07-26] MEDS: AZITHROMYCIN 500 MG in DEXTROSE 5%-WATER 250 ML IV SCH (10:13)
[2016-07-26] MEDS: LISINOPRIL 10 MG TABLET PO SCH (10:14)
[2016-07-26] MEDS: CEFTRIAXONE 1 GM/D5W RTU 50 ML IV SCH (10:14)
[2016-07-26] MEDS: CARVEDILOL 12.5 MG TABLET PO SCH (10:15)
[2016-07-26] MEDS: CYCLOSPORINE 0.05% OPH EMULSIO 0.4 ML DROPERETTE OU SCH (10:15)
[2016-07-26] MEDS: LEVOTHYROXINE SODIUM 0.05 MG TABLET PO SCH (10:15)
[2016-07-26] MEDS: RIVAROXABAN 10 MG TABLET PO SCH (10:15)
[2016-07-26 15:59] VITALS: BP 136/62
--- NOTE | 2016-07-26 16:53 | PDOC DISCHARGE SUMMARY ---
General - Admit/Disc Date/PCP Admission Date/Primary Care Provider: 07/24/16 17:47 CONCEPCION SCHMID MD Discharge Date: 07/26/16 - Discharge Diagnosis (1) Acute bacterial bronchitis Is this a current diagnosis for this admission?: YesSummary: Markedly improved. Continue course of antibiotics. Follow-up with PCP in one week. (2) COPD (chronic obstructive pulmonary disease) Is this a current diagnosis for this admission?: YesSummary: Bronchospasm the longer evident. (3) Anticoagulated Is this a current diagnosis for this admission?: Yes (4) CAD (coronary artery disease) Is this a current diagnosis for this admission?: Yes (5) Status post lobectomy of lung Is this a current diagnosis for this admission?: Yes (6) Pancytopenia Is this a current diagnosis for this admission?: Yes (7) Pneumonia Is this a current diagnosis for this admission?: YesSummary: Ruled out by CT scan. - Additional Information Resuscitation Status: Full Code Discharge Diet: As Tolerated Discharge Activity: Activity As Tolerated Home Medications: Acetaminophen [Tylenol 325 mg Tablet] 325 mg PO Q6HP PRN 07/24/16 Albuterol Sulfate [Albuterol Sulfate 2.5mg/3 mL] 1 vial IH Q6 07/24/16 Albuterol Sulfate [Ventolin Hfa] 2 puff IH Q4 PRN 07/24/16 Calcium Carbonate/Vitamin D3 [Calcium 500-Vit D3 200 Caplet] 1 tab-cap PO DAILY 07/24/16 Carvedilol [Coreg 25 mg Tablet] 25 mg PO Q12 07/24/16 Cyclosporine 0.05% Oph Emulsio [Restasis 0.05% Oph Emulsion Pf 0.4 ml] 1 drop OU Q12 07/24/16 Esomeprazole Magnesium [Nexium] 20 mg PO DAILY 07/24/16 Levothyroxine Sodium [Synthroid 0.05 mg Tablet] 50 mcg PO DAILY 07/24/16 Lisinopril [Prinivil] 20 mg PO Q12 07/24/16 Multivitamin [Tab-A-Ag] 1 tab PO DAILY 07/24/16 Nitroglycerin [Nitrostat 0.4 mg (1/150 Gr) Tabs 25/Bottle] 0.4 mg PO Q5MP PRN Pravastatin Sodium [Pravachol] 40 mg PO DAILY 07/24/16 Rivaroxaban [Xarelto] 20 mg PO DAILY 07/24/16 Tiotropium [place] [Spiriva Handihaler 5 Cap/Kit (18 Mcg/Cap)] 1 cap IH DAILY Azithromycin 500 mg PO DAILY #3 tablet 07/26/16 Cefpodoxime Proxetil 200 mg PO BID #14 tablet 07/26/16 History of Present Illness Patient complains of: Sent from home for fevers and confusion History of Present Illness: Hospital course:ROSELIA MICHELE is a 81 year old female preesnt from home after episode of confusion prompting her [place] health nurse to the home; upon her arrival she reportedly found her altered with "high fever" but no documentation of same. Hospital Course Hospital Course: EMS called and on arrival in ED so far the only finding is positional desat when sitting upright, cough with phlegm, no fever or leukocytosis but concern for pneumonia and we were asked to admit for further evaluation. she describes "neck pain" but cannot characterize it better, worse with any movement, better with rest and no asct'd symptoms of [place], dizziness, vision changes, tinnitus, N/T, sore throat, difficulty swallowing, swollen glands. she also reports increasing cough with increasing white, frothy phlegm, increase SOA, fatigue, myalgias and arthralgias. she has no recollection of this morning's events. no family accompanied her to the hospital. CT scan of the chest does not confirm a pneumonia as suspected on admission however she continues to complain of cough with productive phlegm suggestive of at least a bacterial bronchitis. She's had no further episodes of confusion. She's had no further fevers. Her neck discomfort is positional and improved. She was treated with Rocephin and, a Zithromax, nebulizers, supplemental O2 and had steady improvement over the course of the next 48 hours. She had no recurrence of her confusion from the moment I met her in the emergency department to the moment of discharge. At this point she can be safely managed at home, she is hematologically stable and expresses no concerns me about discharge at this time. Physical Exam Vital Signs: Temp Pulse Resp BP Pulse Ox 98.2 F 89 16 136/62 H 93 07/26/16 15:55 07/26/16 15:55 07/26/16 15:55 07/26/16 15:55 07/26/16 15:55 Intake & Output 07/25/16 07/26/16 07/27/16 06:59 06:59 06:59 Intake Total 553 440 560 Output Total 400 300 Balance 553 40 260 Weight 60.5 kg 62.3 kg PHYSICAL EXAM GENERAL: NAD; well developed, well nourished; no obese; alert and oriented to person, place, time HEENT: normocephalic, atraumatic; no conjunctival injection, no scleral icterus ; oral mucosa moist, neck supple RESPIRATORY: no accessory muscle use, no increased WOB, diminished air entry Rt base; no wheezes, rales, rhonchi; bibasilar inspiratory crackles resolved CARDIO: marked JV pulsations in Rt; irr irr; soft systolic murmur; no tachycardia VASCULAR: no carotid bruit; no abdominal bruit; no pallor; 2+ radial, DP pulse ; normal capillary refill; bilat varicosities GI: soft; nondistended; normal bowel sounds; no rebound, rigidity, guarding; nontender NEURO: normal patella reflexes; normal sensation; normal motor function; no dysarthria; tongue protrudes midline; MSK: 5/5 strength; normal ROM hips; no tenderness EXTREMITIES: no calf tender; no palpable cords in calf; no clubbing, cyanosis , pedal edema PSYCH: normal affect, normal mood SKIN: warm; moist; no petechiae; no telengectasias; no jaundice; no rash Results Laboratory Results: 07/26/16 05:13 07/26/16 05:13 07/26/16 07/26/16 05:13 05:13 WBC 4.6 RBC 4.28 Hgb 10.5 L Hct 32.4 L MCV 76 L MCH 24.6 L MCHC 32.5 RDW 17.0 H Plt Count 168 Seg Neutrophils % 66.2 Lymphocytes % 12.9 L Monocytes % 11.9 Eosinophils % 8.4 H Basophils % 0.6 Absolute Neutrophils 3.1 Absolute Lymphocytes 0.6 Absolute Monocytes 0.6 Absolute Eosinophils 0.4 Absolute Basophils 0.0 Sodium 143.4 Potassium 3.2 L Chloride 104 Carbon Dioxide 25 Anion Gap 14 BUN 10 Creatinine 0.52 Est GFR ( Amer) > 60 Est GFR (Non-Af Amer) > 60 Glucose 101 Calcium 8.9 07/25/16 06:06 NT-Pro-B Natriuret Pep 2130 H Impressions: Chest CT 07/24/16 00:00 IMPRESSION: No acute findings. Chest X-Ray 07/24/16 00:00 IMPRESSION: Interval improvement in pleural and parenchymal changes in the right lower hemithorax. The current changes may be chronic in nature. Other findings as noted above Qualifiers PATEINT BEING DISCHARGED WITH ANY OF THE FOLLOWING DIAGNOSIS?: No VTE patient discharged on overlapping Therapy?: No Reason(s) for not prescribing Overlap Therapy:: Not indicated Plan Discharge Plan: Discharge home with follow-up with her PCP in one week; return to the emergency department for worsening condition. Continue course of antibiotics. Time Spent: Greater than 30 Minutes
== END 2016-07-26 16:43 | disposition home or self-care (01) | DRG 202 ==
LOC: ER 14:59 → EH 17:47 → UNDOADMIN 18:05 → 4W 07-25 00:05 → 4S 07-25 17:14
PROVIDERS: ADMIT Internal Medicine; ATTEND Internal Medicine
DX: J20.9 Acute bronchitis, unspecified (principal); D61.818 Other pancytopenia; J43.9 Emphysema, unspecified; I50.9 Heart failure, unspecified; I48.2 Chronic atrial fibrillation; I11.0 Hypertensive heart disease with heart failure; E78.5 Hyperlipidemia, unspecified; E03.9 Hypothyroidism, unspecified; K21.9 Gastro-esophageal reflux disease without esophagitis; F32.9 Major depressive disorder, single episode, unspecified; R41.82 Altered mental status, unspecified; I25.2 Old myocardial infarction; Z79.01 Long term (current) use of anticoagulants; Z79.51 Long term (current) use of inhaled steroids; Z79.899 Other long term (current) drug therapy; Z95.1 Presence of aortocoronary bypass graft; Z95.0 Presence of cardiac pacemaker; Z90.2 Acquired absence of lung [part of]
CPT/HCPCS: 36415; 51701; 71010; 71250; 80048; 80053; 81001; 82803; 83605; 83880; 85025; 85610; 87040; 87086; 87804; 93005; 93010; 94640; 99285; J0456; J0696; J3490; J7030; J7060; J7620

== ENCOUNTER 2017-01-25 10:46 | Emergency (ER) | payer MEDICARE, OTHER ==
[2017-01-25] MEDS ORDERED: MORPHINE SULFATE 10 MG/ML INJ IV ONE (11:09)
--- NOTE | 2017-01-25 11:11 | ER Document Report ---
ED General - General Stated Complaint: LEFT KNEE PAIN Time Seen by Provider: 01/25/17 10:52 Mode of Arrival: Medic Information source: Patient, Emergency Med Personnel Notes: 81-year-old female history of arthritis presents with complaints of left knee pain. Patient notes the pain has been ongoing for 4 days worsening. She notes it is hot to touch and today she was having difficulty moving her knee Patient denies any trauma TRAVEL OUTSIDE OF THE [place] IN LAST 30 DAYS: No - HPI Onset: Last week Onset/Duration: Persistent, Worse Quality of pain: Achy Severity: Moderate Pain Level: 2 Associated symptoms: Body/muscle aches Exacerbated by: Movement Relieved by: Denies Similar symptoms previously: No Recently seen / treated by doctor: No - Related Data Allergies/Adverse Reactions: No Known Allergies Allergy (Verified 01/25/17 12:05) Home Medications: Current Home Medications Furosemide 20 mg PO DAILY 01/25/17 [History] Past Medical History - Social History Smoking Status: Never Smoker Cigarette use (# per day): No Chew tobacco use (# tins/day): No Smoking Education Provided: No Family History: Reviewed & Not Pertinent, CAD - Past Medical History Cardiac Medical History: Reports: Hx Atrial Fibrillation, Hx Congestive Heart Failure, Hx DVT - history, Hx Heart Attack, Hx Hypercholesterolemia, Hx Hypertension Denies: Hx Pulmonary Embolism Pulmonary Medical History: Reports: Hx COPD Neurological Medical History: Denies: Hx Seizures Endocrine Medical History: Reports: Hx Hypothyroidism. Denies: Hx Diabetes Mellitus Type 1, Hx Diabetes Mellitus Type 2, Hx Hyperthyroidism Renal/ Medical History: Denies: Hx Peritoneal Dialysis Malignancy Medical History: Reports: Hx Lung Cancer GI Medical History: Reports: Hx Gastroesophageal Reflux Disease. Denies: Hx Cirrhosis, Hx Hepatitis Musculoskeltal Medical History: Reports Hx Arthritis Skin Medical History: Reports Hx Eczema - Questionable Psychiatric Medical History: Reports: Hx Depression Infectious Medical History: Denies: Hx Hepatitis Past Surgical History: Reports: Hx Cardiac Catheterization, Hx Cardiac Surgery - pacemaker placement, bypass, Hx Coronary Artery Bypass Graft, Hx Pacemaker, Other - Right lower lobectomy for lung cancer 2013. - Immunizations Hx Diphtheria, Pertussis, Tetanus Vaccination: Yes Hx Pneumococcal Vaccination: 04/20/14 Review of Systems - Review of Systems Notes: REVIEW OF SYSTEMS: CONSTITUTIONAL : Denies fever, chills, or sweats. Denies recent illness. EENT: Denies eye, ear, throat, or mouth pain or symptoms. Denies nasal or sinus congestion or discharge. Denies throat, tongue, or mouth swelling or difficulty swallowing. CARDIOVASCULAR: Denies chest pain. Denies palpitations or racing or irregular heart beat. Denies ankle edema. RESPIRATORY: Denies cough, cold, or chest congestion. Denies shortness of breath, difficulty breathing, or wheezing. GASTROINTESTINAL: Denies abdominal pain or distention. Denies nausea, vomiting , or diarrhea. Denies blood in vomitus, stools, or per rectum. Denies black, tarry stools. Denies constipation. GENITOURINARY: Denies difficulty urinating, painful urination, burning, frequency, blood in urine, or discharge. FEMALE GENITOURINARY: Denies vaginal bleeding, heavy or abnormal periods, irregular periods. Denies vaginal discharge or odor. MUSCULOSKELETAL: Admits left knee swelling pain SKIN: Denies rash, lesions or sores. HEMATOLOGIC : Denies easy bruising or bleeding. LYMPHATIC: Denies swollen, enlarged glands. NEUROLOGICAL: Denies confusion or altered mental status. Denies passing out or loss of consciousness. Denies dizziness or lightheadedness. Denies headache. Denies weakness or paralysis or loss of use of either side. Denies problems with gait or speech. Denies sensory loss, numbness, or tingling. Denies seizures. PSYCHIATRIC: Denies anxiety or stress. Denies depression, suicidal ideation, or homicidal ideation. ALL OTHER SYSTEMS REVIEWED AND NEGATIVE. PHYSICAL EXAMINATION: GENERAL: Well-appearing, well-nourished and in no acute distress. HEAD: Atraumatic, normocephalic. EYES: Pupils equal round and reactive to light, extraocular movements intact, conjunctiva are normal. ENT: Nares patent, oropharynx clear without exudates. Moist mucous membranes. NECK: Normal range of motion, supple without lymphadenopathy LUNGS: Breath sounds clear to auscultation bilaterally and equal. No wheezes rales or rhonchi. HEART: Regular rate and rhythm without murmurs ABDOMEN: Soft, nontender, nondistended abdomen. No guarding, no rebound. No masses appreciated. Female : deferred Musculoskeletal: Limited range of motion of the left knee secondary to pain and swelling NEUROLOGICAL: Cranial nerves grossly intact. Normal speech, normal gait. Normal sensory, motor exams PSYCH: Normal mood, normal affect. SKIN: Erythema noted around the left knee Dictation was performed using [employer] voice recognition software -: Yes ROS unobtainable due to patient's medical condition Physical Exam - Vital signs Vitals: Temp Pulse Resp BP Pulse Ox 99.5 F 87 16 143/87 H 94 01/25/17 11:24 01/25/17 11:24 01/25/17 11:24 01/25/17 11:24 01/25/17 11:24 Course - Re-evaluation Re-evalutation: 01/25/17 11:11 Concern is for septic arthritis, lab work pending, patient is noted to be on Xarelto - Vital Signs Vital signs: Temp Pulse Resp BP Pulse Ox 99.5 F 87 16 143/87 H 94 01/25/17 11:24 01/25/17 11:24 01/25/17 11:24 01/25/17 11:24 01/25/17 11:24 - Laboratory Result Diagrams: 01/25/17 11:13 01/25/17 11:13 Laboratory results interpreted by me: 01/25/17 01/25/17 01/25/17 11:13 11:13 11:13 Hgb 9.8 L Hct 30.4 L MCV 74 L MCH 23.7 L RDW 18.7 H Plt Count 138 L Lymphocytes % 7.3 L Monocytes % 14.7 H ESR 70 H PT 22.6 H Potassium 3.5 L Carbon Dioxide 33 H Glucose 111 H Direct Bilirubin 0.5 H C-Reactive Protein 88.2 H
--- NOTE | 2017-01-25 11:22 | RADIOLOGY REPORT (SQ) ---
EXAM DESCRIPTION: KNEE LEFT 4 VIEW COMPLETED DATE/TIME: 01/25/2017 11:16 am REASON FOR STUDY: left knee edema COMPARISON: None. NUMBER OF VIEWS: Four views. TECHNIQUE: AP, lateral, and both oblique radiographic images acquired of the left knee. LIMITATIONS: None. FINDINGS: MINERALIZATION: Normal. BONES: No acute fracture or dislocation. No worrisome bone lesions. 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 Small joint effusion. SOFT TISSUES: Surgical clips posteromedial soft tissues. No soft tissue swelling. No radio-opaque f oreign body. OTHER: No other significant finding. 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 NO RADIOGRAPH IC EVIDENCE OF ACUTE INJURY. TECHNICAL DOCUMENTATION: JOB ID: [id number]- All Rights Reserved
[2017-01-25 11:25] LABS: ABSOLUTE LYMPHOCYTES (AUTO) 0.5 10^3/uL (0.5-4.7); ABSOLUTE MONOCYTES (AUTO) 0.9 10^3/uL (0.1-1.4); BASOPHILS % (AUTO) 0.2 % (0-2); EOSINOPHILS % (AUTO) 0.2 % (0-6); HEMATOCRIT 30.4 % (36.0-47.0); HEMOGLOBIN 9.8 g/dL (12.0-15.5); LYMPHOCYTES % (AUTO) 7.3 % (13-45); MEAN CORPUSCULAR HEMOGLOBIN 23.7 pg (27.0-33.4); MEAN CORPUSCULAR HGB CONC 32.2 g/dL (32.0-36.0); MEAN CORPUSCULAR VOLUME 74 fl (80-97); MONOCYTES % (AUTO) 14.7 % (3-13); RED BLOOD COUNT 4.13 10^6/uL (3.72-5.28); RED CELL DISTRIBUTION WIDTH 18.7 % (11.5-14.0); SEGMENTED NEUTROPHILS % (AUTO) 77.6 % (42-78); WHITE BLOOD COUNT 6.4 10^3/uL (4.0-10.5)
[2017-01-25 11:49] LABS: ALANINE AMINOTRANSFERASE 26 U/L (9-52); ALBUMIN 3.9 g/dL (3.5-5.0); ALKALINE PHOSPHATASE 71 U/L (38-126); ANION GAP 12 (5-19); ASPARTATE AMINO TRANSFERASE 19 U/L (14-36); BILIRUBIN,DIRECT 0.5 mg/dL (0.0-0.4); BILIRUBIN,TOTAL 0.9 mg/dL (0.2-1.3); BLOOD UREA NITROGEN 15 mg/dL (7-20); C-REACTIVE PROTEIN 88.2 mg/L (<10.0); CARBON DIOXIDE 33 mmol/L (22-30); CHLORIDE 99 mmol/L (98-107); CREATININE RESULT 0.61 mg/dL (0.52-1.25); GLUCOSE 111 mg/dL (75-110); POTASSIUM 3.5 mmol/L (3.6-5.0); SODIUM 143.8 mmol/L (137-145)
[2017-01-25 12:06] LABS: PROTHROMBIN TIME 22.6 SEC (11.4-15.4)
[2017-01-25 12:28] LABS: ERYTHROCYTE SEDIMENTATION RATE 70 mm/hr (0-30)
[2017-01-25] MEDS ORDERED: LIDOCAINE 1% INJ-PF (10 MG/ML) 30 ML SDV INFIL ONE (12:41)
[2017-01-25 14:13] LABS: OTHER CRYSTALS NONE OBSERVED
[2017-01-25 14:46] LABS: FLUID TYPE SYNOVIAL
[2017-01-25 14:47] LABS: FLUID APPEARANCE CLOUDY; FLUID RBC AVERAGE 239.5; FLUID RBC DILUENT USED SALINE; FLUID RBC DILUTION FACTOR 20; FLUID RBC SIDE 1 232; FLUID RBC SIDE 2 247; TOTAL RBC SQUARES COUNTED FLD 25
[2017-01-25 16:12] VITALS: BP 100/40
== END 2017-01-25 16:11 | disposition home or self-care (01) ==
LOC: ER 10:46
PROC: 0S9D3ZZ Drainage of Left Knee Joint, Percutaneous Approach (ICD-10-PCS; principal; 2017-01-25)
DX: M25.462 Effusion, left knee (principal); M25.562 Pain in left knee; I48.91 Unspecified atrial fibrillation; I50.9 Heart failure, unspecified; E78.00 Pure hypercholesterolemia, unspecified; I11.0 Hypertensive heart disease with heart failure; J44.9 Chronic obstructive pulmonary disease, unspecified; E03.9 Hypothyroidism, unspecified; Z86.718 Personal history of other venous thrombosis and embolism; I25.2 Old myocardial infarction; Z95.0 Presence of cardiac pacemaker; Z95.1 Presence of aortocoronary bypass graft; Z79.02 Long term (current) use of antithrombotics/antiplatelets
CPT/HCPCS: 99283; 36415; 87040; 85025; 85652; 85610; 89050; 89060; 86140; 80053; 83605; 73562; 20610; J2270